=== PATIENT | female | born 1965 | race Caucasian/White ===

== ENCOUNTER 2017-06-06 10:35 | Emergency (ER) | payer MEDICARE, OTHER ==
--- NOTE | 2017-06-06 11:11 | ED Physician Documentation ---
Chest Pain - HISTORIAN Historian: patient - HPI Stated Complaint: left sided chest pain and arm pain after fall Chief Complaint: General Adult Onset: other (3 weeks increasing ) Timing: still present Duration: waxing, waning Last known Well Date: 05/15/17 Last Known Well Time: 08:00 Last known Well Code/Unknown Code: Unknown Context: other (sometimes has pain with movement but not always ) Severity: moderate Quality: pressure, burning, dull, aching, sharp Chest Pain Radiation: arms, shoulders, back Chest Pain Signs/Symptoms: nausea, diaphoresis, dyspnea Worsened By: deep breaths, exertion, movement Relieved By: nothing Further Comments: yes (states when it starts it is "a while" before it goes away and she does have times where the pain is waking her out of a sleep) - ROS CONST: none MS/LYMPH: none GI/: none SKIN/ENDO: none NEURO/PSYCH: none - PAST HX CA risk factors: no pertinent history DVT/PE Risk Factors: none TAD/AAA risk factors: none Neuro deficit: none GI disease: other (Chron's Disease) Surgeries/Procedures: other (several colon resections and hysterectomy in ) Immunizations: referred to PCP - SOCIAL HX Smoking History: quit greater than 1 year Alcohol Use: none Drug Use: none - FAMILY HX Family HX: none - REVIEWED ASSESSMENTS Nursing Assessment Reviewed: Yes Vitals Reviewed: Yes <Doris Nguyen - Last Filed: 06/06/17 16:17> - HPI Worsened By: other (patient complains of increasing pain and tingling in her MARCK down to the hand even with rubbing over the posterior scapular area. Tenderness to palpation over the costomanubrial aea 4-6th ribs) - VITAL SIGNS Vital Signs: Vital Signs Temp Pulse Resp BP Pulse Ox 98.7 F 81 20 121/89 98 06/06/17 10:35 06/06/17 13:17 06/06/17 13:17 06/06/17 13:17 06/06/17 13:17 <Sacha Rosario - Last Filed: 06/07/17 09:36> - PAST HX Allergies/Adverse Reactions: Allergies Allergy/AdvReac Type Severity Reaction Status Date / Time No Known Allergies Allergy Verified 06/06/17 11:21 Home Medications: Ambulatory Orders Medication Instructions Recorded Cyclobenzaprine HCl 10 mg PO TID PRN #30 tablet 06/06/17 Diclofenac Sodium [Voltaren] 50 mg PO BID #30 tablet. 06/06/17 Progress - EKG/XRAY/CT EKG: NSR <Doris Nguyen - Last Filed: 06/06/17 16:17> ED Results Lab/Radiology - Radiology Radiology Impressions: Examination: PA and lateral chest. History: Evaluate lung haq. Comparison exam: None available. Findings: PA lateral chest demonstrate a normal cardiac and mediastinal silhouette. No focal infiltrate. No effusion. No blunting of the costophrenic margins. Osseous structures are appropriate for age. Impression: No acute pulmonary process. Electronically signed on Jun 06, 2017 11:45:09 AM CDT by: Kaden Fregoso <Doris Nguyen - Last Filed: 06/06/17 16:17> - Lab Results Lab Results: Lab Results 06/06/17 06/06/17 06/06/17 12:05 12:05 12:05 WBC 7.00 K/ul K/ul (4.00-12.00) RBC 5.14 M/ul M/ul (3.90-5.20) Hgb 14.7 g/dL g/dL (12.0-16.0) Hct 43.0 % % (34.5-46.5) MCV 83.7 fl fl (80.0-100.0) MCH 28.5 pg pg (28.0-34.0) MCHC 34.1 g/dL g/dL (30.0-36.0) RDW 13.4 % % (11.3-14.3) Plt Count 213 K/mm3 K/mm3 (130-400) Neut % (Auto) 53.8 % % (39.0-79.0) Lymph % (Auto) 36.4 % % (16.0-50.0) [place] % (Auto) 4.6 % % (0.0-11.0) Eos % (Auto) 1.7 % % (0.0-6.8) Baso % (Auto) 2.1 H (0.0-1.5) Neut # (Auto) 3.8 # k/uL # k/uL (1.4-7.7) Lymph # (Auto) 2.6 # k/uL # k/uL (0.6-4.0) [place] # (Auto) 0.3 # k/uL # k/uL (0.0-0.9) Eos # (Auto) 0.1 # k/uL # k/uL (0.0-0.6) Baso # (Auto) 0.2 # k/uL # k/uL (0.0-0.5) Reactive Lymphs % 1.3 % % (0.0-5.0) Reactive Lymphs # 0.1 # k/uL # k/uL (0.0-0.8) Sodium 143 mmol/L mmol/L (136-145) Potassium 3.6 mmol/L mmol/L (3.5-5.0) Chloride 104 mmol/L mmol/L (98-110) Carbon Dioxide 29 mmol/L mmol/L (20-32) BUN 14 mg/dL mg/dL (10-26) Creatinine 0.6 mg/dL mg/dL (0.4-1.5) Estimated Creat Clear 149 Est GFR ( Amer) > 60 (60 - ) Est GFR (Non-Af Amer) > 60 (60 - ) Glucose 91 mg/dL mg/dL (70-99) Calcium 9.6 mg/dL mg/dL (8.5-10.5) Troponin I < 0.03 ng/mL L ng/mL (0.03-0.06) - Orders Orders: ED Orders Category Date Time Status IV Started NOW Care 06/06/17 11:13 Active CHEST 2 VIEW [CHEST P.A.&LAT 2 VIEWS] [RAD] Stat Exams 06/06/17 Completed BMP [BMP] Routine Lab 06/06/17 12:05 Completed CBC/PLATELET/DIFF Routine Lab 06/06/17 12:05 Completed TICK PROFILE Stat Lab 06/06/17 12:05 Received TROPONIN I (cTnI) Stat Lab 06/06/17 12:05 Completed EKG WITH COMPARISON Stat Ther 06/06/17 Completed <Sacha Rosario - Last Filed: 06/07/17 09:36> Chest Pain Physical Exam - EXAM General Appearance: no acute distress, alert EENT: eye inspection normal Neck: nml inspection Respiratory: no resp. distress, nml breath sounds, manifests distinct pain on movement CVS: reg. rate & rhythm, no murmur, no gallop, no friction rub Abdomen: soft, no organomegaly, normal bowel sounds Skin: warm/dry, normal color Extremities: non-tender Neuro: oriented X3, CN's nml as tested <Doris Nguyen - Last Filed: 06/06/17 16:17> - EXAM Respiratory: other (tender to palpation over the 4-6th anterior rib area. No bony abnl noted. ) Neuro: motor nml, sensation nml, cognition normal, other (DTR normal to BR and biceps) <Sacha Rosario - Last Filed: 06/07/17 09:36> Discharge Decision to Admit: NO Date of Decison to Admit: 06/06/17 Decision Time: 12:45 <Doris Nguyen - Last Filed: 06/06/17 16:17> <Sacha Rosario - Last Filed: 06/07/17 09:36> Clincal Impression: Costochondritis, acute Prescriptions: Cyclobenzaprine HCl 10 mg PO TID PRN #30 tablet PRN Reason: muscle spasms Diclofenac Sodium [Voltaren] 50 mg PO BID #30 tablet. Referrals: Primary Doctor,No [Primary Care Provider] - 2 Days Condition: Stable Disposition: 01 HOME, SELF-CARE
[2017-06-06 12:10] LABS: BASOPHILS % 2.1 (0.0-1.5); EOSINOPHILS % 1.7 % (0.0-6.8); MEAN CORPUSCULAR HEMOGLOBIN 28.5 pg (28.0-34.0); MEAN CORPUSCULAR VOLUME 83.7 fl (80.0-100.0); MONOCYTES % 4.6 % (0.0-11.0); NEUTROPHILS # 3.8 # k/uL (1.4-7.7)
[2017-06-06 12:34] LABS: eGFR (African) > 60; eGFR (Non-African) > 60
[2017-06-06 13:23] VITALS: BP 121/89
--- NOTE | 2017-06-06 16:33 | Diagnostic Imaging Report ---
ROX ROBERTSON~ [facility] [address] [facility] [address] [place], [place]. [address] ~ ~ ~ ~ Report Submission Date: Jun 06, 2017 11:45:09 AM CDT Patient ~ Study Name: JAMI ECHOLS ~ Date: Jun 06, 2017 11:22:49 AM CDT ~ Modality Type: CR Gender: F ~ Description: CHEST : 65 ~ Institution: [facility] Physician: ROX ROBERTSON ~ ~ ~ ~ Examination: PA and lateral chest. History: Evaluate lung haq. Comparison exam: None available. Findings: PA lateral chest demonstrate a normal cardiac and mediastinal silhouette. No focal infiltrate.~ No effusion.~ No blunting of the costophrenic margins.~ Osseous structures are appropriate for age. Impression: No acute pulmonary process. ~ Electronically signed on Jun 06, 2017 11:45:09 AM CDT by: Kaden MOORE
== END 2017-06-06 13:10 | disposition home or self-care (01) ==
LOC: ED 10:35
DX: M94.0 Chondrocostal junction syndrome [Tietze] (principal)
CPT/HCPCS: 71020; 80048; 84484; 85025; 86618; 86666; 86757; 99283; S1016